=== PATIENT | male | born 1935 | race Caucasian/White ===

== ENCOUNTER → 2017-04-05 | Outpatient (CLI) | payer OTHER, MEDICARE ==
--- NOTE | 2017-04-05 17:52 | RADRPT ---
PROCEDURE: Left knee radiographs. CLINICAL INDICATION: Left knee pain. TECHNIQUE: Three views. Weight bearing. Frontal, lateral, and patellar view. COMPARISON: 09/08/2015. FINDINGS: There is no fracture or dislocation. Vascular calcifications are present consistent with atherosclerosis. There are degenerative changes with osteophytes arising from all 3 joint compartment margins. There is subarticular sclerosis and deformity of all 3 joint compartments. There is no lytic or blastic lesion. There is no radiopaque foreign body. IMPRESSION: 1. 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 2. No acute abnormality. RPTAT: QQ .Hayes Pagan MD, MD Date Time Electronically viewed and signed by .Hayes Pagan MD, MD on 04/05/2017 17:52 .R/
--- NOTE | 2017-04-05 17:55 | RADRPT ---
PROCEDURE: XR Lumbar Spine. CLINICAL INDICATION: Back pain. TECHNIQUE: Three views. AP, lateral and cone-down lateral view of the lumbar spine were obtained. COMPARISON: No prior studies are available for comparison. FINDINGS: There is normal stature and alignment of the vertebrae. There is no fracture. There is no lytic or blastic lesion. There are degenerative changes with small osteophytes throughout. There is hypertrophy of the facet joints at L5-S1. Vascular calcifications are present consistent with atherosclerosis. IMPRESSION: 1. Mild degenerative change. 2. Atherosclerosis. 3. Otherwise unremarkable images of the lumbar spine. RPTAT: QQ .Hayes Pagan MD, MD Date Time Electronically viewed and signed by .Hayes Pagan MD, MD on 04/05/2017 17:55 .R/
== END | disposition home or self-care (01) ==
LOC: HKI 14:07
DX: M25.562 Pain in left knee (principal)
CPT/HCPCS: 72100

== ENCOUNTER → 2018-06-21 | Outpatient (CLI) | END | disposition home or self-care (01) ==